=== PATIENT | female | born 1945 | race Hispanic/Latino ===

== ENCOUNTER 2019-02-25 13:25 | Inpatient (IN) | payer OTHER ==
[~2019-02-25] VITALS: Ht 160 cm; Wt 90.6 kg
[2019-02-25] VITALS (20 sets, daily range): BP systolic 89–154; BP diastolic 44–100
[2019-02-25 13:41] LABS: BASOPHILS % (AUTO) 0.2 % (0.0-5.0); EOSINOPHILS % (AUTO) 0.1 % (0.0-8.0); HEMATOCRIT 37.1 % (36-48); LYMPHOCYTES % (AUTO) 28.2 % (21.0-51.0); MEAN CORPUSCULAR HEMOGLOBIN 30.4 pg (27.0-33.0); MEAN CORPUSCULAR HGB CONC 31.6 g/dL (32.0-36.0); MONOCYTES % (AUTO) 4.6 % (3.0-13.0); NEUTROPHILS % (AUTO) 66.9 % (40.0-77.0); NUCLEATED RED BLOOD CELLS 0.1 % (0.0-0.19); PLATELET COUNT (AUTO) 251 K/uL (130-400); RED BLOOD CELL COUNT(AUTO) 3.86 MIL/uL (4.00-5.50); RED CELL DISTRIBUTION WIDTH 13.9 % (11.0-15.5); WHITE BLOOD COUNT (AUTO) 12.7 K/uL (4.8-10.8)
[2019-02-25] MEDS ORDERED: NOREPINEPHRINE BITARTRATE 1 MG/1 ML ML IV ONE (13:43)
[2019-02-25] MEDS ORDERED: SODIUM CHLORIDE 0.9% 1000ML 2,000 ML IV ONE (13:43)
[2019-02-25] MEDS ORDERED: SODIUM CHLORIDE 0.9% 250 ML IV ONE (13:44)
[2019-02-25 14:01] LABS: INR 1.1 (0.85-1.15); PROTHROMBIN TIME 11.5 SEC (9.6-11.6)
[2019-02-25 14:04] LABS: ALBUMIN 2.8 g/dL (3.5-5.0); BILIRUBIN,TOTAL 0.9 mg/dL (0.2-1.0); CREATININE 6.2 mg/dL (0.5-1.5); POTASSIUM 4.4 mmol/L (3.5-5.1); TOTAL PROTEIN, SERUM 6.9 g/dL (6.0-8.3)
[2019-02-25] MEDS ORDERED: PROPOFOL 1000 MG/100 ML 100 ML IV ONE ×2 (14:04→21:35)
[2019-02-25 14:39] LABS: ABG BASE EXCESS -15.8 mmol/L (-2.0-3.0); ABG HCO3 14.2 mmol/L (21.0-28.0); ABG OXYGEN SATURATION 99.7 % (95.0-99.0); ABG PCO2 50 mmHg (32-45)
[2019-02-25] MEDS: CLOPIDOGREL BISULFATE 75 MG TAB PO SCH (14:54)
[2019-02-25] MEDS: ASPIRIN 325 MG TABLET PO SCH (14:54)
[2019-02-25] MEDS: ENOXAPARIN SODIUM 40 MG/0.4 ML SYRINGE SQ SCH (15:00)
[2019-02-25] MEDS ORDERED: SUCCINYLCHOLINE CHLORIDE 20 MG/ML 10 ML VIAL IVP ONE (15:02)
[2019-02-25] MEDS ORDERED: ETOMIDATE 2 MG/ML 10 ML VIAL IVP ONE (15:02)
[2019-02-25] MEDS ORDERED: LACTATED RINGERS 1000ML 1,000 ML IV ONE ×2 (16:14→16:36)
[2019-02-25] MEDS ORDERED: SODIUM BICARB 50MEQ 50ML VIAL ONE (16:35)
[2019-02-25] MEDS ORDERED: LACTATED RINGERS 1000ML IV SCH (16:45)
[2019-02-25] MEDS ORDERED: SODIUM BICARB 50MEQ 50ML VIAL IV ONE (16:45)
[2019-02-25] MEDS ORDERED: SODIUM BICARB 8.4% 50ML SYRING 150 MEQ in DEXTROSE 5%-WATER 1,000 ML IV SCH (16:45)
[2019-02-25] MEDS ORDERED: PHENYLEPHRINE HCL 10 MG in SODIUM CHLORIDE 0.9% 250 ML IV PRN (16:45)
[2019-02-25] MEDS: NOREPINEPHRINE 4MG/NS 250ML 250 ML IV SCH (16:49)
[2019-02-25] MEDS ORDERED: GLUCAGON 1MG KIT 1 MG ML IM PRN (17:30)
[2019-02-25] MEDS ORDERED: DEXTROSE 50%-WATER 50 ML DISP.SYRIN IV PRN (17:30)
[2019-02-25] MEDS ORDERED: VANCOMYCIN PROTOCOL PER PHARMACY IV SCH (17:30)
[2019-02-25 18:02] LABS: ABG HCO3 20.3 mmol/L (21.0-28.0); ABG OXYGEN SATURATION 97.6 % (95.0-99.0); ABG PCO2 47 mmHg (32-45)
[2019-02-25] MEDS ORDERED: METO-408 PO (18:18)
[2019-02-25] MEDS ORDERED: GABA-531 PO (18:18)
[2019-02-25] MEDS ORDERED: ASPI-1181 PO (18:18)
[2019-02-25] MEDS ORDERED: FENO135C4 PO (18:18)
[2019-02-25] MEDS ORDERED: OXCA600T18 PO (18:18)
[2019-02-25] MEDS ORDERED: FURO40TA5 PO (18:18)
[2019-02-25] MEDS ORDERED: PRAV40TA3 PO (18:18)
[2019-02-25] MEDS ORDERED: LOSA100T58 PO (18:18)
[2019-02-25] MEDS ORDERED: GLIP5TAB11 PO (18:18)
[2019-02-25] MEDS: SODIUM CHLORIDE 0.9% 1000ML 1,000 ML IV SCH ×7 (18:30→23:00)
[2019-02-25] MEDS ORDERED: SODIUM BICARB 50MEQ 50ML VIAL IV SCH (18:30)
[2019-02-25 19:10] LABS: MAGNESIUM 2.1 mg/dL (1.80-2.40); PHOSPHORUS 13.1 mg/dL (2.5-4.9)
[2019-02-25] MEDS ORDERED: COMPOUND IV REFRIGERATED 1 EACH IVSOLN MISC PRN (19:15)
[2019-02-25] MEDS: INSULIN HUMULIN R 100 UNIT/ML 3ML SQ SCH (19:24)
[2019-02-25 19:36] LABS: HEMOGLOBIN A1C 13.3 % (4.0-6.0)
[2019-02-25] MEDS ORDERED: VANCOMYCIN 1.5 GM in SODIUM CHLORIDE 0.9% 250 ML IV SCH (20:00)
[2019-02-25] MEDS: ATORVASTATIN CALCIUM 40 MG TABLET PO SCH (20:30)
[2019-02-25] MEDS: ZOSYN 3.375GM+NS 50ML 50 ML IV SCH (22:02)
[2019-02-26] VITALS (76 sets, daily range): BP systolic 57–156; BP diastolic 32–96
[2019-02-26] MEDS: INSULIN HUMULIN R 100 UNIT/ML 3ML SQ SCH ×3 (00:09→12:07)
[2019-02-26] MEDS: SODIUM CHLORIDE 0.9% 1000ML 1,000 ML IV SCH ×8 (00:20→06:10)
[2019-02-26] MEDS: NOREPINEPHRINE 4MG/NS 250ML 250 ML IV SCH ×3 (01:37→21:36)
[2019-02-26 04:03] LABS: HEMATOCRIT 30.9 % (36-48); MEAN CORPUSCULAR HEMOGLOBIN 30.5 pg (27.0-33.0); MEAN CORPUSCULAR HGB CONC 33.8 g/dL (32.0-36.0); MEAN CORPUSCULAR VOLUME 90.1 fL (79-99); NUCLEATED RED BLOOD CELLS 0.1 % (0.0-0.19); PLATELET COUNT (AUTO) 184 K/uL (130-400); RED BLOOD CELL COUNT(AUTO) 3.43 MIL/uL (4.00-5.50); RED CELL DISTRIBUTION WIDTH 13.2 % (11.0-15.5)
[2019-02-26 04:16] LABS: ALBUMIN 2.5 g/dL (3.5-5.0); CREATININE 4.7 mg/dL (0.5-1.5); MAGNESIUM 1.8 mg/dL (1.80-2.40); PHOSPHORUS 8.3 mg/dL (2.5-4.9); POTASSIUM 4.4 mmol/L (3.5-5.1)
[2019-02-26] MEDS ORDERED: PROPOFOL 1000 MG/100 ML 100 ML IV ONE ×2 (04:25→11:52)
[2019-02-26] MEDS ORDERED: MAGNESIUM 2GM PREMIX 50ML 50 ML IV ONE (06:45)
[2019-02-26 06:54] LABS: APPEARANCE,URINE Turbid (CLEAR); BILIRUBIN,URINE Negative (NEGATIVE); COLOR,URINE Yellow (YELLOW); GLUCOSE, URINE (UA) 500 mg/dL (NEGATIVE); KETONES,URINE Negative (NEGATIVE); LEUKOCYTE ESTERASE ,URINE Moderate (NEGATIVE); NITRATE,URINE Negative (NEGATIVE); OCCULT BLOOD,URINE Large (NEGATIVE); PROTEIN,URINE POS 1+ mg/dL (NEGATIVE); UROBILINOGEN,URINE 0.2 mg/dL (0.2-1.0)
[2019-02-26 07:18] LABS: AMORPHOUS SEDIMENT,UR Few /LPF (None Seen); BACTERIA,URINE Few /HPF (None Seen); MUCUS,URINE Few LPF (None Seen); SQUAMOUS EPITHELIAL CELL,UR Rare /HPF (0-2); WBC,URINE >100 /HPF (0-1)
--- NOTE | 2019-02-26 07:49 | NUR ---
TRIGGER RECEIVED. Pt CURRENTLY INTUBATED. SPEECH AND SWALLOW EVALUATION IS RECOMMENDED 24 HOURS POST EXTUBATION. ADULT CARE PROVIDER WILL CONTINUE TO FOLLOW Pt. Addendum: 02/26/19 at 0753 by ANAHY GO, [facility] Amended: Links added.
--- NOTE | 2019-02-26 08:50 | NUR ---
DR. MADRID AT BEDSIDE FOR CONSULT.
[2019-02-26] MEDS: ZOSYN 3.375GM+NS 50ML 50 ML IV SCH ×2 (09:05→21:09)
[2019-02-26 09:16] LABS: PROTEIN,URINE RANDOM 94.5 mg/dL (0-11.9)
--- NOTE | 2019-02-26 10:19 | NUR ---
SEDATION VACATION COMPLETED. PT NODS YES TO QUESTIONS UNABLE TO OPEN EYES, MOVING LOWER EXTREMITIES SPONTANEOUSLY AND TO COMMANDS. PROPOFOL RESTARTED FOR PICC LINE PLACEMENT.
--- NOTE | 2019-02-26 10:32 | NUR ---
Daphne RIVERA CITY ENGINEER AT BEDSIDE. PLAN OF CARE DISCUSSED.
--- NOTE | 2019-02-26 11:37 | NUR ---
PICC LINE UNABLE TO INSERT PICC LINE 5 MALDIVIAN 2LUMEN TO RIGHT UPPER ARM. ATTEMPTED WITH DIFFICULTY, WAS UNABLE TO ADVANCE CATHETER ONLY TILL 25 CM AFTER SEVERAL ATTEMPTS. SMALL DRESSING APPLIED TO SITE. SMALL BRUISE NOTED TO SITE AFTER COMPLETION. REPORT GIVEN TO REBEL GOLDSTEIN RN. . NOTIFIED SURGICAL CODER WELL.
[2019-02-26] MEDS: CLOPIDOGREL BISULFATE 75 MG TAB PO SCH (11:54)
[2019-02-26] MEDS: ASPIRIN 325 MG TABLET PO SCH (11:54)
[2019-02-26] MEDS: SODIUM BICARB 8.4% 50ML SYRING 200 MEQ in DEXTROSE 5%-WATER 950 ML IV SCH ×2 (11:55→19:23)
--- NOTE | 2019-02-26 12:55 | NUR ---
DC PLAN PATIENT CURRENTLY UNDER PROCEDURE FOR PICC LINE. NO FAMILY AT BEDSIDE, WILL MONITOR. Addendum: 02/26/19 at 1256 by NAHOMI BECERRA RN CM Amended: Links added.
--- NOTE | 2019-02-26 14:14 | NUR ---
[place] PLAN PATIENT ASLEEP, DAUGHTER AT BEDSIDE. PER DAUGHTER, PATIENT IS INDEPENDENT, LIVES WITH SPOUSE AND NIECES, NO PROVIDER, NO EQUIPMENT, AND FEELS SAFE TO RETURN HOME ONCE READY. Addendum: 02/26/19 at 1417 by NAHOMI BECERRA RN CM Amended: Links added. Addendum: 02/26/19 at 1418 by NAHOMI BECERRA RN CM PLACED IN ERROR. Addendum: 02/26/19 at 1419 by NAHOMI MARIAM, RN CM ENTERED IN ERROR
--- NOTE | 2019-02-26 14:20 | NUR ---
DC PLAN PATIENT VENTED, NO FAMILY AT BEDSIDE. WILL MONITOR. Addendum: 02/26/19 at 1421 by NAHOMI BECERRA RN CM Amended: Links added.
--- NOTE | 2019-02-26 15:18 | NUR ---
RD NOTIFICATION Dx: Cardiac Arrest, Stemi. Hx: HTN, Hemorr- CVA in the past, COPD, CHF, DM, CKD. No diet order at this time; pt intubated. Recommend to consult PENOLOGY TEACHER 24 hours post extubation. Consult RD post extubation. RD pending to provide diet and nutrition education. Advance diet as tolerated when medically feasible. RD recommends draw lipid panel due to high risk CVA. RD pending diet and nutrition education- POST EXTUBATION. RD will continue to monitor and follow up. Rosalie Brown MS, JUANITA Addendum: 02/26/19 at [address] Amended: Links added.
[2019-02-26] MEDS: ENOXAPARIN SODIUM 40 MG/0.4 ML SYRINGE SQ SCH (17:12)
[2019-02-26] MEDS: INSULIN LISPRO 100 UNIT/ML 3ML SQ SCH (17:50)
[2019-02-26] MEDS: PROPOFOL 1000 MG/100 ML IV PRN (19:28)
--- NOTE | 2019-02-26 20:00 | NUR ---
ASSESSMENT REMAINS ON VENT WITH ORDERED SETTINGS AND SEDATION. LEVOPHED DRIP INFUSING FOR BP SUPPORT. ASSESSMENT COMPLETED SEE FLOW SHEET. FAMILY AT BEDSIDE AND QUESTIONS ANSWERED. Addendum: 02/26/19 at 2156 by ALANA CASE RN RN Amended: Links added.
[2019-02-26] MEDS: ATORVASTATIN CALCIUM 40 MG TABLET PO SCH (21:09)
[2019-02-26] MEDS ORDERED: SODIUM CHLORIDE 0.9% 250 ML IV ONE (21:14)
[2019-02-26] MEDS: INSULIN GLARGINE 100 UNITS/ML 10 ML VIAL SQ SCH (21:23)
[2019-02-27] VITALS (43 sets, daily range): BP systolic 85–144; BP diastolic 42–74
[2019-02-27] MEDS: INSULIN LISPRO 100 UNIT/ML 3ML SQ SCH ×4 (00:20→17:53)
[2019-02-27 04:12] LABS: HEMATOCRIT 30.6 % (36-48); MEAN CORPUSCULAR HGB CONC 34.5 g/dL (32.0-36.0); MEAN CORPUSCULAR VOLUME 89.9 fL (79-99); NUCLEATED RED BLOOD CELLS 0.2 % (0.0-0.19); PLATELET COUNT (AUTO) 176 K/uL (130-400); RED BLOOD CELL COUNT(AUTO) 3.41 MIL/uL (4.00-5.50); RED CELL DISTRIBUTION WIDTH 13.1 % (11.0-15.5); WHITE BLOOD COUNT (AUTO) 9.2 K/uL (4.8-10.8)
[2019-02-27 04:15] LABS: BAND NEUTROPHILS % (MANUAL) 18 % (0-2); LYMPHOCYTES % (MANUAL) 17 % (22-44); MAN.DIFF COMMENT-IMPRESSION MANUAL DIFFERENTIAL; PLATELET MORPHOLOGY COMMENT ADEQUATE; SEGMENTED NEUTROPHILS % 65 % (40-70)
[2019-02-27] MEDS: PROPOFOL 1000 MG/100 ML IV PRN ×3 (04:21→19:32)
[2019-02-27 04:28] LABS: ALBUMIN 2.2 g/dL (3.5-5.0); BILIRUBIN,DIRECT 0.8 mg/dL (0.0-0.3); BILIRUBIN,TOTAL 1.2 mg/dL (0.2-1.0); CREATININE 3.9 mg/dL (0.5-1.5); PHOSPHORUS 4.1 mg/dL (2.5-4.9); POTASSIUM 3.1 mmol/L (3.5-5.1); TOTAL PROTEIN, SERUM 5.7 g/dL (6.0-8.3)
[2019-02-27 04:48] LABS: ABG BASE EXCESS 15.8 mmol/L (-2.0-3.0); ABG HCO3 40.6 mmol/L (21.0-28.0); ABG OXYGEN SATURATION 95.1 % (95.0-99.0); ABG PCO2 48 mmHg (32-45)
[2019-02-27] MEDS: INSULIN GLARGINE 100 UNITS/ML 10 ML VIAL SQ SCH ×2 (06:35→21:14)
[2019-02-27] MEDS: SODIUM BICARB 8.4% 50ML SYRING 200 MEQ in DEXTROSE 5%-WATER 950 ML IV SCH (08:05)
[2019-02-27] MEDS: CLOPIDOGREL BISULFATE 75 MG TAB PO SCH (08:44)
[2019-02-27] MEDS: ZOSYN 3.375GM+NS 50ML 50 ML IV SCH ×2 (08:44→21:03)
[2019-02-27] MEDS: ASPIRIN 325 MG TABLET PO SCH (08:44)
--- NOTE | 2019-02-27 10:00 | NUR ---
Dr. Lewis in to see pt. plan of care discussed. New orders received and noted.
--- NOTE | 2019-02-27 11:57 | NUR ---
[employer] follow up representative called for pacemaker interrogation. Will interrogate device today.
[2019-02-27] MEDS: FAMOTIDINE/PF 20 MG/2 ML VIAL IV SCH (14:10)
[2019-02-27] MEDS: ENOXAPARIN SODIUM 40 MG/0.4 ML SYRINGE SQ SCH (14:11)
[2019-02-27] MEDS ORDERED: POTASSIUM CHLORIDE 10% ELIXIR 20 MEQ/15 ML UDCUP PO SCH (19:00)
[2019-02-27] MEDS: ATORVASTATIN CALCIUM 40 MG TABLET PO SCH (21:03)
[2019-02-28] VITALS (35 sets, daily range): BP systolic 94–169; BP diastolic 44–98
[2019-02-28] MEDS: PROPOFOL 1000 MG/100 ML IV PRN ×4 (03:49→23:00)
[2019-02-28 04:15] LABS: HEMATOCRIT 31.8 % (36-48); MEAN CORPUSCULAR HEMOGLOBIN 30.4 pg (27.0-33.0); MEAN CORPUSCULAR HGB CONC 33.5 g/dL (32.0-36.0); MEAN CORPUSCULAR VOLUME 90.7 fL (79-99); PLATELET COUNT (AUTO) 214 K/uL (130-400); RED CELL DISTRIBUTION WIDTH 13.1 % (11.0-15.5); WHITE BLOOD COUNT (AUTO) 9.6 K/uL (4.8-10.8)
[2019-02-28 04:32] LABS: ABG BASE EXCESS 5.3 mmol/L (-2.0-3.0); ABG HCO3 27.3 mmol/L (21.0-28.0); ABG OXYGEN SATURATION 98.4 % (95.0-99.0); ABG PCO2 32 mmHg (32-45)
[2019-02-28 04:43] LABS: ALBUMIN 2.1 g/dL (3.5-5.0); BILIRUBIN,TOTAL 1.5 mg/dL (0.2-1.0); CREATININE 3.3 mg/dL (0.5-1.5); MAGNESIUM 2.8 mg/dL (1.80-2.40); PHOSPHORUS 3.8 mg/dL (2.5-4.9); POTASSIUM 3.6 mmol/L (3.5-5.1); TOTAL PROTEIN, SERUM 6.2 g/dL (6.0-8.3); TROPONIN I 0.59 ng/mL (0.00-0.06); URIC ACID 9.9 mg/dL (2.6-7.2)
[2019-02-28] MEDS: INSULIN GLARGINE 100 UNITS/ML 10 ML VIAL SQ SCH ×2 (06:29→20:07)
[2019-02-28] MEDS: INSULIN LISPRO 100 UNIT/ML 3ML SQ SCH ×5 (06:30→20:08)
--- NOTE | 2019-02-28 07:00 | NUR ---
SEDATION WEANED OFF. PT AWAKE AND FOLLOWING COMMANDS, NOTED RESTLESS AT TIMES.
--- NOTE | 2019-02-28 07:35 | NUR ---
PT PLACED ON CPAP 10/5 ORDERED. TOLERATING WELL.
[2019-02-28] MEDS: ZOSYN 3.375GM+NS 50ML 50 ML IV SCH ×2 (07:56→20:58)
[2019-02-28] MEDS: FAMOTIDINE/PF 20 MG/2 ML VIAL IV SCH (07:57)
[2019-02-28] MEDS: ASPIRIN 325 MG TABLET PO SCH (07:57)
[2019-02-28] MEDS: CLOPIDOGREL BISULFATE 75 MG TAB PO SCH (07:57)
[2019-02-28 09:15] LABS: ABG BASE EXCESS 6.6 mmol/L (-2.0-3.0); ABG HCO3 33.2 mmol/L (21.0-28.0); ABG OXYGEN SATURATION 97.1 % (95.0-99.0); ABG PCO2 55 mmHg (32-45)
--- NOTE | 2019-02-28 09:50 | NUR ---
PT TOLERATING WEANING FROM VENT, RESTLESS AT TIMES. ATTEMPTING TO SIT UP AND PULL ETT, REORIENTED TO SITUATION. ABG/VS/PT CONDITION REPORTED DR. DEVINE. NEW ORDERS TO EXTUBATE PT.
--- NOTE | 2019-02-28 10:15 | NUR ---
PT FAILED AIR LEAK TEST., DR. DEVINE NOTIFIED. ORDER TO KEEP PT INTUBATED, T LACED BACK ON AC AND SEDATION RESTARTED. TOLERATING WELL. CONTINUE TO MONITOR T.
--- NOTE | 2019-02-28 11:00 | NUR ---
DR. DEVINE IN TO SEE PT. PLAN OF CARE DISCUSSED. NEW ORDERS RECEIVED AND NOTED.
[2019-02-28] MEDS: DEXAMETHASONE SOD PHOSPHATE 4 MG/ML 1ML VIAL IVP SCH ×2 (12:00→16:54)
--- NOTE | 2019-02-28 15:17 | NUR ---
RD Follow Up Notification for tube feeding recommendations received. Pt to remain intubated, sedated. RD TF Recommendations: Vital AF 1.2, Goal: 50mls/hr (1200mL/1440kcal/90gm pro) Rec flushes: 125ml Q6hrs. Recommendations Placed in Pt chart, RN notified. Pt LBM 02/26/19. Pt monitored labs: Na 149, CO2 33, BUN 53, Cr 3.3, GFR 15, Glu 176, Uric Acid 9.9, Ca 7.2, Mg 2.80, T. Bili 1.5, AST 1606, ALT 222. TCK 578, Myoglobin 247, Trop I 0.5, Alb 2.1. RD to continue to monitor. Please notify RD as additional nutrition concerns arise. Thank you. Addendum: 02/28/19 at [address] Amended: Links added.
[2019-02-28] MEDS: ENOXAPARIN SODIUM 40 MG/0.4 ML SYRINGE SQ SCH (16:03)
--- NOTE | 2019-02-28 16:46 | NUR ---
cm note pt currently still on vent, met with patient's daughter Hoa fong, states pt resides athome with her, and extended family, pt is independent with ambulation with walker at times. and has a provider for adll assist. pt drives, discussed dc planning of possible need for snf/rehab, states agreeable to any Md recommendations, once pt is more stable.
[2019-02-28] MEDS: ATORVASTATIN CALCIUM 40 MG TABLET PO SCH (19:58)
[2019-03-01] VITALS (28 sets, daily range): BP systolic 113–185; BP diastolic 57–104
[2019-03-01] MEDS: DEXAMETHASONE SOD PHOSPHATE 4 MG/ML 1ML VIAL IVP SCH ×4 (00:38→17:18)
[2019-03-01] MEDS: INSULIN LISPRO 100 UNIT/ML 3ML SQ SCH ×6 (00:42→21:28)
[2019-03-01] MEDS: PROPOFOL 1000 MG/100 ML IV PRN ×5 (04:10→23:18)
[2019-03-01 05:51] LABS: HEMATOCRIT 32.4 % (36-48); MEAN CORPUSCULAR HEMOGLOBIN 30.6 pg (27.0-33.0); MEAN CORPUSCULAR VOLUME 92.7 fL (79-99); NUCLEATED RED BLOOD CELLS 0.1 % (0.0-0.19); PLATELET COUNT (AUTO) 238 K/uL (130-400); RED CELL DISTRIBUTION WIDTH 13.7 % (11.0-15.5)
[2019-03-01 06:20] LABS: BILIRUBIN,TOTAL 1.1 mg/dL (0.2-1.0); CREATININE 2.6 mg/dL (0.5-1.5); POTASSIUM 3.7 mmol/L (3.5-5.1)
[2019-03-01 06:21] LABS: ALBUMIN 2.1 g/dL (3.5-5.0); TOTAL PROTEIN, SERUM 6.8 g/dL (6.0-8.3)
[2019-03-01] MEDS: INSULIN GLARGINE 100 UNITS/ML 10 ML VIAL SQ SCH ×2 (06:41→21:27)
[2019-03-01] MEDS: ZOSYN 3.375GM+NS 50ML 50 ML IV SCH ×2 (08:25→21:26)
[2019-03-01] MEDS: FAMOTIDINE/PF 20 MG/2 ML VIAL IV SCH (08:25)
[2019-03-01 09:14] LABS: ABG HCO3 22.5 mmol/L (21.0-28.0); ABG OXYGEN SATURATION 94.1 % (95.0-99.0); ABG PCO2 38 mmHg (32-45)
[2019-03-01] MEDS ORDERED: COMPOUND IV MISC 1 EACH IVSOLN MISC PRN (09:30)
--- NOTE | 2019-03-01 09:30 | NUR ---
MD VISIT Dr. Bradford Francisco and Sid Kumar in to see pt, update given. New orders received and will carry out.
[2019-03-01] MEDS: ASPIRIN 325 MG TABLET PO SCH (09:50)
[2019-03-01] MEDS: LEVETIRACETAM 250 MG in SODIUM CHLORIDE 0.9% 100 ML IV SCH ×2 (09:50→21:37)
[2019-03-01] MEDS: CLOPIDOGREL BISULFATE 75 MG TAB PO SCH (09:50)
--- NOTE | 2019-03-01 11:40 | NUR ---
Dr. Valdivia notified of patients blood pressure and abg results. Patient restless. Minimal leak test with very little air leak. Patient to be resedated.
--- NOTE | 2019-03-01 11:46 | NUR ---
FOLLOW UP COMPLETED. Pt CONTINUES TO BE INTUBATED AT THIS TIME. SPEECH AND SWALLOW EVALUATION IS RECOMMENDED 24 HOURS POST EXTUBATION. BUS DRIVER/MONITOR COORDINATED CARE WITH NURSE FEDERICO. Addendum: 03/01/19 at 1148 by ANAHY GO, [facility] Amended: Links added.
[2019-03-01] MEDS: ENOXAPARIN SODIUM 40 MG/0.4 ML SYRINGE SQ SCH (14:47)
[2019-03-01] MEDS ORDERED: HYDRALAZINE HCL 20 MG/ML VIAL ONE (18:32)
[2019-03-01] MEDS: HYDRALAZINE HCL 20 MG/ML VIAL IV PRN ×2 (18:35→23:18)
--- NOTE | 2019-03-01 19:28 | NUR ---
ASSESSMENT: REPORT RECEIVED. PATIENT OPENS EYES TO MILD STIMULI , PUPILS 2 MM EQUAL, ETT 7.5 @ 22 CM @ LIPS, VENT SETTINGS AC RATE 20/TV 450/ PEEP 5/FIO2 405, O2 saturation 40%, OGT WITH TUBE FEEDING VITAL AF @ 30 ML/HR, SEDATED WITH DIPRIVAN IV, LUNGS CLEAR , ABDOMEN SOFT WITH BOWEL SOUNDS ACTIVE. PEDAL PULSES WEAK,PALPABLE, BRUISING NOTED TO ANTERIOR NECK, JONES PATENT TO BSD, NO FAMILY PRESENT.
[2019-03-01] MEDS: ATORVASTATIN CALCIUM 40 MG TABLET PO SCH (21:26)
[2019-03-02] VITALS (24 sets, daily range): BP systolic 128–162; BP diastolic 63–103
[2019-03-02] MEDS: DEXAMETHASONE SOD PHOSPHATE 4 MG/ML 1ML VIAL IVP SCH ×5 (00:26→23:25)
[2019-03-02] MEDS: INSULIN LISPRO 100 UNIT/ML 3ML SQ SCH ×6 (00:28→20:50)
[2019-03-02] MEDS: PROPOFOL 1000 MG/100 ML IV PRN ×6 (03:30→21:12)
[2019-03-02 03:56] LABS: BASOPHILS % (AUTO) 0.2 % (0.0-5.0); HEMATOCRIT 32.3 % (36-48); LYMPHOCYTES % (AUTO) 7.5 % (21.0-51.0); MEAN CORPUSCULAR HEMOGLOBIN 29.8 pg (27.0-33.0); MEAN CORPUSCULAR HGB CONC 32.9 g/dL (32.0-36.0); MEAN CORPUSCULAR VOLUME 90.8 fL (79-99); MONOCYTES % (AUTO) 6.8 % (3.0-13.0); NEUTROPHILS % (AUTO) 85.5 % (40.0-77.0); NUCLEATED RED BLOOD CELLS 0.1 % (0.0-0.19); PLATELET COUNT (AUTO) 293 K/uL (130-400); RED BLOOD CELL COUNT(AUTO) 3.55 MIL/uL (4.00-5.50); RED CELL DISTRIBUTION WIDTH 13.6 % (11.0-15.5); WHITE BLOOD COUNT (AUTO) 7.6 K/uL (4.8-10.8)
[2019-03-02 04:05] LABS: CREATININE 2.3 mg/dL (0.5-1.5); MAGNESIUM 2.4 mg/dL (1.80-2.40); PHOSPHORUS 3.7 mg/dL (2.5-4.9); POTASSIUM 3.5 mmol/L (3.5-5.1)
[2019-03-02] MEDS: INSULIN GLARGINE 100 UNITS/ML 10 ML VIAL SQ SCH ×2 (06:34→20:51)
--- NOTE | 2019-03-02 07:32 | NUR ---
DR. GARCIA HAVE SPOKEN TO HIM REGARDING THE CONSULT
--- NOTE | 2019-03-02 07:50 | NUR ---
MD VISIT Dr. Keenan in to see pt, update given. Plan of care discussed.
[2019-03-02] MEDS: FAMOTIDINE/PF 20 MG/2 ML VIAL IV SCH (08:24)
[2019-03-02] MEDS: CLOPIDOGREL BISULFATE 75 MG TAB PO SCH (08:25)
[2019-03-02] MEDS: ASPIRIN 325 MG TABLET PO SCH (08:25)
--- NOTE | 2019-03-02 08:25 | NUR ---
NEPHRO Dr. Bradford Francisco in to see pt, update given, plan of care discussed.
[2019-03-02] MEDS: ZOSYN 3.375GM+NS 50ML 50 ML IV SCH ×2 (08:28→20:48)
[2019-03-02 08:40] LABS: ABG BASE EXCESS 0.4 mmol/L (-2.0-3.0); ABG HCO3 22.7 mmol/L (21.0-28.0); ABG OXYGEN SATURATION 97.2 % (95.0-99.0); ABG PCO2 31 mmHg (32-45)
--- NOTE | 2019-03-02 09:00 | NUR ---
ENT Dr. Brown in to see pt, ENT scope done. New order received for CT of neck w/o contrast, will carry out.
--- NOTE | 2019-03-02 09:30 | NUR ---
NEURO Dr. Lau in to see pt, update given.
[2019-03-02] MEDS: LEVETIRACETAM 250 MG in SODIUM CHLORIDE 0.9% 100 ML IV SCH ×2 (10:13→22:12)
[2019-03-02] MEDS: ENOXAPARIN SODIUM 40 MG/0.4 ML SYRINGE SQ SCH (14:07)
[2019-03-02] MEDS: ARTIFICAL TEARS SOL 15 ML OU SCH (16:14)
[2019-03-02] MEDS: ATORVASTATIN CALCIUM 40 MG TABLET PO SCH (20:48)
[2019-03-03] VITALS (26 sets, daily range): BP systolic 112–170; BP diastolic 59–88
[2019-03-03] MEDS: PROPOFOL 1000 MG/100 ML IV PRN ×7 (00:43→22:20)
[2019-03-03] MEDS: INSULIN LISPRO 100 UNIT/ML 3ML SQ SCH ×6 (00:44→20:06)
[2019-03-03 04:38] LABS: HEMATOCRIT 31.4 % (36-48); MEAN CORPUSCULAR HEMOGLOBIN 30.6 pg (27.0-33.0); MEAN CORPUSCULAR HGB CONC 33.4 g/dL (32.0-36.0); MEAN CORPUSCULAR VOLUME 91.5 fL (79-99); NUCLEATED RED BLOOD CELLS 0.1 % (0.0-0.19); PLATELET COUNT (AUTO) 309 K/uL (130-400); RED BLOOD CELL COUNT(AUTO) 3.43 MIL/uL (4.00-5.50); RED CELL DISTRIBUTION WIDTH 13.4 % (11.0-15.5)
[2019-03-03 05:00] LABS: ALBUMIN 2.2 g/dL (3.5-5.0); BILIRUBIN,TOTAL 0.5 mg/dL (0.2-1.0); MAGNESIUM 2.5 mg/dL (1.80-2.40); PHOSPHORUS 4.9 mg/dL (2.5-4.9); POTASSIUM 4.1 mmol/L (3.5-5.1); TOTAL PROTEIN, SERUM 6.3 g/dL (6.0-8.3)
[2019-03-03] MEDS: DEXAMETHASONE SOD PHOSPHATE 4 MG/ML 1ML VIAL IVP SCH ×4 (05:09→23:53)
[2019-03-03] MEDS: INSULIN GLARGINE 100 UNITS/ML 10 ML VIAL SQ SCH ×2 (06:30→20:05)
[2019-03-03] MEDS: ASPIRIN 325 MG TABLET PO SCH (08:27)
[2019-03-03] MEDS: FAMOTIDINE/PF 20 MG/2 ML VIAL IV SCH (08:27)
[2019-03-03] MEDS: CLOPIDOGREL BISULFATE 75 MG TAB PO SCH (08:28)
[2019-03-03] MEDS: ZOSYN 3.375GM+NS 50ML 50 ML IV SCH ×2 (08:28→21:31)
[2019-03-03] MEDS: LEVETIRACETAM 250 MG in SODIUM CHLORIDE 0.9% 100 ML IV SCH ×2 (09:35→22:07)
[2019-03-03] MEDS: HYDRALAZINE HCL 20 MG/ML VIAL IV PRN (10:26)
[2019-03-03] MEDS: ENOXAPARIN SODIUM 40 MG/0.4 ML SYRINGE SQ SCH (14:07)
--- NOTE | 2019-03-03 14:48 | NUR ---
RD FOLLOW UP NOTE Recommend to decrease tube feeding rate to 45mls d/t to increased CHO load, BG 263, Pt also with Propofol (9mls/hr:238kcals) in place. Pt with improving Renal labs values (BUN 57, Cr 2.0, GFR 26). Pt remains intubated, being weaned as per EMR. Pt LBM 11, Liquid/Brown Loose, as per EMR. Pt remaining monitored labs: Na 149, Ca 8.0, Mg 2.50, AST 167, ALT 806, Alb 2.2. RD to continue to monitor. Please notify RD as additional nutrition concerns arise. Thank you. Addendum: 03/03/19 at [address] Amended: Links added.
[2019-03-03] MEDS: ARTIFICAL TEARS SOL 15 ML OU SCH (16:17)
--- NOTE | 2019-03-03 20:00 | NUR ---
ASSESSMENT REMAINS ON VENT WITH ORDERED SETTINGS AND SEDATION. ASSESSMENT COMPLETED SEE FLOW SHEET. Addendum: 03/03/19 at 6 by ALANA CASE RN RN Amended: Links added.
[2019-03-03] MEDS: ATORVASTATIN CALCIUM 40 MG TABLET PO SCH (20:01)
[2019-03-04] VITALS (25 sets, daily range): BP systolic 106–176; BP diastolic 49–100
[2019-03-04] MEDS: INSULIN LISPRO 100 UNIT/ML 3ML SQ SCH ×6 (00:05→20:00)
[2019-03-04] MEDS: PROPOFOL 1000 MG/100 ML IV PRN ×4 (01:26→08:39)
[2019-03-04 04:12] LABS: CREATININE 1.7 mg/dL (0.5-1.5); MAGNESIUM 2.2 mg/dL (1.80-2.40); POTASSIUM 4.8 mmol/L (3.5-5.1)
[2019-03-04] MEDS: DEXAMETHASONE SOD PHOSPHATE 4 MG/ML 1ML VIAL IVP SCH ×4 (06:16→23:13)
[2019-03-04] MEDS: INSULIN GLARGINE 100 UNITS/ML 10 ML VIAL SQ SCH ×2 (06:18→21:29)
[2019-03-04] MEDS: FAMOTIDINE/PF 20 MG/2 ML VIAL IV SCH (08:05)
[2019-03-04] MEDS: CLOPIDOGREL BISULFATE 75 MG TAB PO SCH (08:06)
[2019-03-04] MEDS: ASPIRIN 325 MG TABLET PO SCH (08:06)
[2019-03-04] MEDS: ZOSYN 3.375GM+NS 50ML 50 ML IV SCH ×2 (08:38→20:41)
[2019-03-04] MEDS: LEVETIRACETAM 250 MG in SODIUM CHLORIDE 0.9% 100 ML IV SCH ×2 (09:20→22:13)
[2019-03-04] MEDS: HYDRALAZINE HCL 20 MG/ML VIAL IV PRN ×2 (10:47→23:43)
[2019-03-04 11:32] LABS: ABG BASE EXCESS -2.3 mmol/L (-2.0-3.0); ABG HCO3 21.8 mmol/L (21.0-28.0); ABG OXYGEN SATURATION 98.3 % (95.0-99.0); ABG PCO2 36 mmHg (32-45)
[2019-03-04] MEDS ORDERED: RACEPINEPHRINE HCL 2.25% 0.5 ML NEB SOLN NEB PRN (13:30)
--- NOTE | 2019-03-04 13:42 | NUR ---
RD NOTIFICATION/ FOLLOW UP DIET: NPO FOR NOW DUE TO WEANING TRIALS. PT PREVIOUSLY TOLERATING VITAL AF 1.2 AT 45ML/HR WELL PER RN. PT CURRENTLY ON WEANING TRIALS FOR POST EXTUBATION. LBM: 03/04 NOTED. SKIN INTACT, NO EDEMA NOTED. RECOMMENDATIONS: CONSULT JACK SPINNER POST EXTUBATION ADVANCE DIET TOLERATED WHEN MEDICALLY FEASIBLE PLEASE NOTIFY RD WITH ANY CHANGES THAT OCCUR RD WILL CONTINUE TO FOLLOW UP AND MONITOR Addendum: 03/04/19 at [address] Amended: Links added.
--- NOTE | 2019-03-04 14:10 | NUR ---
EXTUBATED PATIENT EXTUBATED AND PLACED ON CAM AT 40%; VS WNL
--- NOTE | 2019-03-04 14:15 | NUR ---
PATIENT STATUS PATIENT CONTINUES TO BE CONFUSED; INCOHERANT; SPITTING, REMOVING OXYGEN MASK, AND FOUND TO HAVE LIVE LICE CRAWLING ON FOREHEAD; DR GLEASON MADE AWARE
[2019-03-04] MEDS ORDERED: PHARMACY COMMUNICATION MISC SCH (14:30)
[2019-03-04] MEDS ORDERED: PERMETHRIN LOTION 1% 59ML BOTTLE TP SCH (14:37)
[2019-03-04] MEDS: ENOXAPARIN SODIUM 40 MG/0.4 ML SYRINGE SQ SCH (14:51)
[2019-03-04] MEDS: ARTIFICAL TEARS SOL 15 ML OU SCH (16:54)
[2019-03-04] MEDS ORDERED: ALTEPLASE 2 MG/VIAL IV SCH ×2 (19:45→22:00)
--- NOTE | 2019-03-04 19:45 | NUR ---
STATUS REMAINS CONFUSED AND AGITATED. HAS 1:[address] WILL NOT LEAVE HEART MONITOR ON AND CONSTANTLY THROWS LEGS OFF SIDE OF BED. REORIENTED BY STAFF BUT REMAINS AGITATED AND CONFUSED. CALL PLACED TO ADAM VITALE .
--- NOTE | 2019-03-04 19:50 | NUR ---
FREIGHT FLAGMAN CALL IAM,FREIGHT FLAGMAN CALLS AND INFORMED OF CONTINUED AGITATION AND CONFUSION. VSS. ORDERS RECEIVED.
[2019-03-04] MEDS: ATORVASTATIN CALCIUM 40 MG TABLET PO SCH (20:41)
[2019-03-04] MEDS ORDERED: HALOPERIDOL LACTATE 5 MG/ML VIAL IM SCH (21:00)
[2019-03-04] MEDS ORDERED: COMPOUND IV REFRIGERATED 1 EACH IVSOLN MISC PRN (21:45)
[2019-03-04] MEDS ORDERED: VANCOMYCIN 1.75 GM in SODIUM CHLORIDE 0.9% 250 ML IV ONE (22:00)
[2019-03-05] VITALS (16 sets, daily range): BP systolic 139–191; BP diastolic 66–102
[2019-03-05 03:58] LABS: BASOPHILS % (AUTO) 0.4 % (0.0-5.0); HEMATOCRIT 31.6 % (36-48); LYMPHOCYTES % (AUTO) 9.5 % (21.0-51.0); MEAN CORPUSCULAR HEMOGLOBIN 30.1 pg (27.0-33.0); MEAN CORPUSCULAR VOLUME 91.3 fL (79-99); MONOCYTES % (AUTO) 7.5 % (3.0-13.0); NEUTROPHILS % (AUTO) 82.6 % (40.0-77.0); NUCLEATED RED BLOOD CELLS 0.1 % (0.0-0.19); PLATELET COUNT (AUTO) 431 K/uL (130-400); RED BLOOD CELL COUNT(AUTO) 3.46 MIL/uL (4.00-5.50); RED CELL DISTRIBUTION WIDTH 13.3 % (11.0-15.5); WHITE BLOOD COUNT (AUTO) 11.8 K/uL (4.8-10.8)
[2019-03-05] MEDS: INSULIN LISPRO 100 UNIT/ML 3ML SQ SCH ×6 (04:00→21:43)
[2019-03-05 04:14] LABS: ALBUMIN 2.5 g/dL (3.5-5.0); BILIRUBIN,TOTAL 0.8 mg/dL (0.2-1.0); CREATININE 1.4 mg/dL (0.5-1.5); MAGNESIUM 2.6 mg/dL (1.80-2.40); PHOSPHORUS 3.6 mg/dL (2.5-4.9); POTASSIUM 4.5 mmol/L (3.5-5.1); TOTAL PROTEIN, SERUM 6.6 g/dL (6.0-8.3)
[2019-03-05] MEDS: HYDRALAZINE HCL 20 MG/ML VIAL IV PRN (04:21)
[2019-03-05] MEDS: DEXAMETHASONE SOD PHOSPHATE 4 MG/ML 1ML VIAL IVP SCH ×4 (05:50→21:37)
[2019-03-05] MEDS: INSULIN GLARGINE 100 UNITS/ML 10 ML VIAL SQ SCH ×2 (06:24→21:44)
[2019-03-05] MEDS: FAMOTIDINE/PF 20 MG/2 ML VIAL IV SCH (07:44)
[2019-03-05] MEDS: ZOSYN 3.375GM+NS 50ML 50 ML IV SCH ×2 (07:44→21:35)
[2019-03-05] MEDS: DEXTROSE 5%-WATER 1,000 ML IV SCH (08:59)
[2019-03-05] MEDS: LEVETIRACETAM 250 MG in SODIUM CHLORIDE 0.9% 100 ML IV SCH ×2 (09:01→21:35)
--- NOTE | 2019-03-05 10:00 | NUR ---
COGNITIVE-LINGUISTIC EVALUATION COMPLETED. Pt PRESENTS WITH MODERATE COGNITIVE DEFICITS. EVALUATION: PT AAOX2, IMPULSIVE AND REQUIRING MODERATE CUES TO FOLLOW 1-STEP COMMANDS. Pt ABLE TO VERBALIZE SIMPLE WANTS AND NEEDS. Pt WITH DECREASED ATTENTION TO TASK REQUIRING FREQUENT REDIRECTION. Pt WITH DECREASED MEMORY SKILLS AT THIS TIME. Pt WITH DECREASED ABILITY TO RECALL INFORMATION AFTER A SHORT DELAY. RECOMMENDATIONS: 1. SKILLED SPEECH THERAPY 3-5XWK TOLERATED BY Pt. LTG1: Pt WILL INCREASE COGNITIVE SKILLS TO PARTICIPATE IN ADLs INDEPENDENTLY. STG1: Pt WILL BE AAOX4 INDEPENDENTLY. STG2: PT WILL FOLLOW 2-STEP COMMANDS INDEPENDENTLY WITH 80% ACCURACY. STG3: Pt WILL RECALL INFORMATION AFTER A SHORT DELAY WITH 80% ACCURACY. STG4: Pt WILL ATTEND TO TASK WITH NO RE-DIRECTION IN 3/5 TRIALS. STG5: SKILLED EDUCATION Pt/FAMILY/STAFF. G-CODES ATTENTION: G9165: TESHA G9166: RONY G9167: CK Addendum: 03/05/19 at 1336 by ILIA BARAJAS Amended: Links added.
[2019-03-05] MEDS: CLOPIDOGREL BISULFATE 75 MG TAB PO SCH (10:06)
[2019-03-05] MEDS: ASPIRIN 325 MG TABLET PO SCH (10:06)
--- NOTE | 2019-03-05 10:15 | NUR ---
DYSPHAGIA EVAL COMPLETED. +S.S OF ASPIRATION WITH THIN AND MECHANICAL SOFT/CHOPPED. RECOMMEND PUREED, NECTAR-THICK LIQUIDS; PILLS CRUSHED WITH APPLESAUCE. RECOMMENDATIONS: DYSPHAGIA THERAPY 3-5X WEEK TO INCREASE ORAL MOTOR STRENGTH AND PHARYNGEAL SWALLOW: LTG#1: Pt WILL TOLERATE LEAST RESTRICTIVE DIET TO MEET NUTRITION/HYDRATION WITH NO S/S OF ASPIRATION. LTG#2: SKILLED EDUCATION Pt/FAMILY/STAFF STG#1: Pt WILL PARTICIPATE IN LARYNGEAL ELEVATION/EXCURSION EXERCISES WITH 80% ACCURACY. STG#2: Pt WILL PARTICIPATE IN TONGUE BASE RETRACTION EXERCISES WITH 80% ACCURACY. STG#3: Pt WILL PARTICIPATE IN ORAL MOTOR EXERCISES WITH 80% ACCURACY. STG#4: Pt WILL TOLERATE PUREED AND NECTAR-TEXTURE WITH NO S/S OF ASPIRATION, STG#5: PT WILL TOLERATE TRIALS OF ADVANCED TEXTURES OF MECHANICAL SOFT, THIN LIQUIDS WITH NO OVERT S/S OF ASPIRATION. STG#6: SKILLED EDUCATION Pt/FAMILY/STAFF. Addendum: 03/05/19 at 1346 by ANAHY GO, [facility] Amended: Links added.
[2019-03-05] MEDS: LOSARTAN 50 MG TABLET PO SCH (11:44)
[2019-03-05] MEDS: ENOXAPARIN SODIUM 40 MG/0.4 ML SYRINGE SQ SCH (14:25)
[2019-03-05] MEDS: ARTIFICAL TEARS SOL 15 ML OU SCH (15:38)
[2019-03-05] MEDS ORDERED: VANCOMYCIN 750MG + NS 250 ML IV SCH ×2 (18:00)
[2019-03-05] MEDS: METOPROLOL SUCCINATE 25 MG PO SCH (21:00)
[2019-03-05] MEDS: ATORVASTATIN CALCIUM 40 MG TABLET PO SCH (21:36)
[2019-03-06] MEDS: DEXTROSE 5%-WATER 1,000 ML IV SCH (00:32)
[2019-03-06] MEDS: INSULIN LISPRO 100 UNIT/ML 3ML SQ SCH ×6 (00:42→20:00)
[2019-03-06 03:55] LABS: BASOPHILS % (AUTO) 0.2 % (0.0-5.0); EOSINOPHILS % (AUTO) 0.2 % (0.0-8.0); LYMPHOCYTES % (AUTO) 17.5 % (21.0-51.0); MEAN CORPUSCULAR HEMOGLOBIN 29.4 pg (27.0-33.0); MEAN CORPUSCULAR HGB CONC 32.5 g/dL (32.0-36.0); MEAN CORPUSCULAR VOLUME 90.3 fL (79-99); MONOCYTES % (AUTO) 7.7 % (3.0-13.0); NEUTROPHILS % (AUTO) 74.4 % (40.0-77.0); PLATELET COUNT (AUTO) 475 K/uL (130-400); RED BLOOD CELL COUNT(AUTO) 2.77 MIL/uL (4.00-5.50); RED CELL DISTRIBUTION WIDTH 13.4 % (11.0-15.5)
[2019-03-06 04:00] VITALS: BP 159/74
[2019-03-06 04:06] LABS: ALBUMIN 2.5 g/dL (3.5-5.0); BILIRUBIN,TOTAL 0.6 mg/dL (0.2-1.0); CREATININE 1.3 mg/dL (0.5-1.5); MAGNESIUM 2.4 mg/dL (1.80-2.40); PHOSPHORUS 3.6 mg/dL (2.5-4.9); POTASSIUM 4.1 mmol/L (3.5-5.1)
[2019-03-06 04:16] LABS: B-TYPE NATRIURETIC PEPTIDE 181 pg/mL (0-100)
[2019-03-06] MEDS: DEXAMETHASONE SOD PHOSPHATE 4 MG/ML 1ML VIAL IVP SCH (06:06)
[2019-03-06] MEDS: INSULIN GLARGINE 100 UNITS/ML 10 ML VIAL SQ SCH ×2 (06:14→21:22)
[2019-03-06 07:13] VITALS: BP 153/88
[2019-03-06] MEDS: ASPIRIN 325 MG TABLET PO SCH (08:38)
[2019-03-06] MEDS: FAMOTIDINE/PF 20 MG/2 ML VIAL IV SCH (08:38)
[2019-03-06] MEDS: LOSARTAN 50 MG TABLET PO SCH (08:38)
[2019-03-06] MEDS: CLOPIDOGREL BISULFATE 75 MG TAB PO SCH (08:38)
[2019-03-06] MEDS: ZOSYN 3.375GM+NS 50ML 50 ML IV SCH ×2 (08:43→20:49)
[2019-03-06] MEDS: METOPROLOL SUCCINATE 25 MG PO SCH ×2 (09:00→20:58)
[2019-03-06] MEDS: LEVETIRACETAM 250 MG in SODIUM CHLORIDE 0.9% 100 ML IV SCH ×2 (10:50→20:58)
--- NOTE | 2019-03-06 11:35 | NUR ---
Attempted to provide diet education however, due to pt being dependent on family members, ROYAL Garcia and Beam Press Operator Silvia- advised to return for education when family is present. RD will continue to attempt to provide diet education.
[2019-03-06 11:38] VITALS: BP 148/90
[2019-03-06] MEDS ORDERED: PHARMACY COMMUNICATION MISC SCH (11:45)
[2019-03-06] MEDS: METHYLPREDNISOLONE 4 MG TABLET PO SCH ×3 (14:12→20:57)
[2019-03-06] MEDS: ENOXAPARIN SODIUM 40 MG/0.4 ML SYRINGE SQ SCH (14:13)
[2019-03-06 15:09] VITALS: BP 148/79
[2019-03-06] MEDS: ARTIFICAL TEARS SOL 15 ML OU SCH (17:22)
[2019-03-06 19:44] VITALS: BP 148/63
[2019-03-06] MEDS: ATORVASTATIN CALCIUM 40 MG TABLET PO SCH (20:49)
[2019-03-06 23:28] VITALS: BP 110/53
[2019-03-07] VITALS (12 sets, daily range): BP systolic 112–161; BP diastolic 65–87
[2019-03-07] MEDS: INSULIN LISPRO 100 UNIT/ML 3ML SQ SCH ×6 (04:00→20:00)
[2019-03-07 04:11] LABS: HEMATOCRIT 22.1 % (36-48); MEAN CORPUSCULAR HEMOGLOBIN 29.6 pg (27.0-33.0); MEAN CORPUSCULAR HGB CONC 32.5 g/dL (32.0-36.0); MEAN CORPUSCULAR VOLUME 90.8 fL (79-99); NUCLEATED RED BLOOD CELLS 0.2 % (0.0-0.19); PLATELET COUNT (AUTO) 483 K/uL (130-400); RED BLOOD CELL COUNT(AUTO) 2.43 MIL/uL (4.00-5.50); RED CELL DISTRIBUTION WIDTH 13.6 % (11.0-15.5); WHITE BLOOD COUNT (AUTO) 14.9 K/uL (4.8-10.8)
[2019-03-07 04:21] LABS: CREATININE 1.3 mg/dL (0.5-1.5); POTASSIUM 4.3 mmol/L (3.5-5.1)
[2019-03-07 04:24] LABS: LYMPHOCYTES % (MANUAL) 20 % (22-44); MAN.DIFF COMMENT-IMPRESSION MANUAL DIFFERENTIAL; MONOCYTES % (MANUAL) 8 % (2-9); PLATELET MORPHOLOGY COMMENT INCREASED; SEGMENTED NEUTROPHILS % 72 % (40-70)
[2019-03-07] MEDS: INSULIN GLARGINE 100 UNITS/ML 10 ML VIAL SQ SCH ×2 (06:44→21:06)
[2019-03-07] MEDS ORDERED: DiphenhydrAMINE HCL 50 MG/ML VIAL IV SCH (07:15)
[2019-03-07] MEDS ORDERED: ACETAMINOPHEN 325 MG TAB PO SCH (07:15)
[2019-03-07] MEDS ORDERED: FUROSEMIDE 10 MG/ML 2ML VIAL IV SCH (07:15)
[2019-03-07] MEDS: CARVEDILOL 3.125 MG TABLET PO SCH ×2 (08:20→21:21)
[2019-03-07] MEDS: METHYLPREDNISOLONE 4 MG TABLET PO SCH ×2 (08:25→22:32)
[2019-03-07] MEDS: ZOSYN 3.375GM+NS 50ML 50 ML IV SCH (08:25)
[2019-03-07] MEDS: FAMOTIDINE/PF 20 MG/2 ML VIAL IV SCH (08:26)
[2019-03-07] MEDS: ASPIRIN 325 MG TABLET PO SCH (08:26)
[2019-03-07] MEDS: CLOPIDOGREL BISULFATE 75 MG TAB PO SCH (08:26)
--- NOTE | 2019-03-07 08:35 | NUR ---
CONSULT Dr. Cabezas notified of new consult, new orders received and will carry out.
[2019-03-07] MEDS: LEVETIRACETAM 250 MG in SODIUM CHLORIDE 0.9% 100 ML IV SCH ×2 (08:58→22:32)
[2019-03-07] MEDS: LOSARTAN 50 MG TABLET PO SCH (08:59)
[2019-03-07] MEDS: METOPROLOL SUCCINATE 25 MG PO SCH ×2 (08:59→20:58)
[2019-03-07] MEDS ORDERED: PANTOPRAZOLE 40 MG/VIAL IVP SCH (09:00)
[2019-03-07] MEDS: PANTOPRAZOLE SODIUM 80 MG in SODIUM CHLORIDE 0.9% 100 ML IV SCH ×2 (10:46→20:56)
[2019-03-07] MEDS ORDERED: PERMETHRIN CREAM 5% 60GM TUBE TP SCH (11:30)
[2019-03-07] MEDS ORDERED: METHYLPREDNISOLONE 4 MG TABLET PO SCH (14:00)
[2019-03-07] MEDS: ENOXAPARIN SODIUM 40 MG/0.4 ML SYRINGE SQ SCH (14:47)
[2019-03-07] MEDS: ARTIFICAL TEARS SOL 15 ML OU SCH (15:14)
--- NOTE | 2019-03-07 16:25 | NUR ---
XFR Pt transferred to room 314, in no distress. All belongings taken with the pt. Telemetry pack applied before transfer. Daughter Jayleen notified of transfer. Report given to ROYAL Muhammad. BRYSON Solares at bedside.
--- NOTE | 2019-03-07 17:30 | NUR ---
DC PLANNING- CHART REVIEW CHART REIVEWEDED BRIEFLY, NOTED PT PREVIOUS ABLE TO FUNCTION AT HOME, CRITICAL EPISODE OF ILLNESS THIS ADMISSION WILL SPEAK TO FAMILY IN AM AND ADDRESS NEW DISCHARGE NEEDS
[2019-03-07] MEDS: VANCOMYCIN 1.25 GM in SODIUM CHLORIDE 0.9% 250 ML IV SCH (17:51)
--- NOTE | 2019-03-07 18:59 | NUR ---
BLOOD TRANSUFION ENDED AT 1849. NO SIGNS OF REACTION ,VITAL SIGNS STABLE
[2019-03-07] MEDS: ATORVASTATIN CALCIUM 40 MG TABLET PO SCH (21:21)
[2019-03-08] VITALS (19 sets, daily range): BP systolic 115–162; BP diastolic 60–92
[2019-03-08] MEDS: INSULIN LISPRO 100 UNIT/ML 3ML SQ SCH ×5 (04:00→20:00)
[2019-03-08] MEDS: INSULIN GLARGINE 100 UNITS/ML 10 ML VIAL SQ SCH ×2 (06:06→21:00)
[2019-03-08 06:38] LABS: HEMATOCRIT 30.1 % (36-48); MEAN CORPUSCULAR HEMOGLOBIN 30.8 pg (27.0-33.0); MEAN CORPUSCULAR HGB CONC 33.4 g/dL (32.0-36.0); MEAN CORPUSCULAR VOLUME 92.2 fL (79-99); NUCLEATED RED BLOOD CELLS 0.2 % (0.0-0.19); PLATELET COUNT (AUTO) 429 K/uL (130-400); RED BLOOD CELL COUNT(AUTO) 3.27 MIL/uL (4.00-5.50); RED CELL DISTRIBUTION WIDTH 14.3 % (11.0-15.5); WHITE BLOOD COUNT (AUTO) 14.5 K/uL (4.8-10.8)
[2019-03-08 06:46] LABS: CREATININE 1.2 mg/dL (0.5-1.5); POTASSIUM 3.7 mmol/L (3.5-5.1)
[2019-03-08] MEDS: METHYLPREDNISOLONE 4 MG TABLET PO SCH ×2 (08:00→18:06)
[2019-03-08] MEDS: METOPROLOL SUCCINATE 25 MG PO SCH ×2 (09:00→21:00)
[2019-03-08] MEDS: CLOPIDOGREL BISULFATE 75 MG TAB PO SCH (09:00)
[2019-03-08] MEDS: CARVEDILOL 3.125 MG TABLET PO SCH ×2 (09:00→21:14)
[2019-03-08] MEDS: LOSARTAN 50 MG TABLET PO SCH (09:00)
[2019-03-08] MEDS: ASPIRIN 325 MG TABLET PO SCH (09:00)
--- NOTE | 2019-03-08 10:03 | NUR ---
Pt update Spoke to BIBIANA Bond for Dr. Keenan, stated he will talk to MD for cardiac clearance and will call me back, Pending call back.
--- NOTE | 2019-03-08 10:54 | NUR ---
PT TAKEN OFF THE FLOOR FOR AN EGD AT THIS TIME WITH DR. HERNANDO BLEVINS
[2019-03-08] MEDS ORDERED: PROPOFOL 10 MG/ML 20ML VIAL IV ONE ×2 (12:15→12:16)
[2019-03-08] MEDS: LEVETIRACETAM 250 MG in SODIUM CHLORIDE 0.9% 100 ML IV SCH ×2 (13:32→21:15)
[2019-03-08] MEDS: ENOXAPARIN SODIUM 40 MG/0.4 ML SYRINGE SQ SCH (15:09)
[2019-03-08] MEDS: ARTIFICAL TEARS SOL 15 ML OU SCH (16:00)
[2019-03-08] MEDS: VANCOMYCIN 1.25 GM in SODIUM CHLORIDE 0.9% 250 ML IV SCH (17:40)
[2019-03-08] MEDS: ATORVASTATIN CALCIUM 40 MG TABLET PO SCH (21:14)
[2019-03-09] VITALS: BP 156/91
[2019-03-09 04:00] VITALS: BP 155/72
[2019-03-09] MEDS: INSULIN LISPRO 100 UNIT/ML 3ML SQ SCH ×5 (04:15→17:47)
[2019-03-09] MEDS: INSULIN GLARGINE 100 UNITS/ML 10 ML VIAL SQ SCH ×2 (06:19→21:00)
[2019-03-09] MEDS: VANCOMYCIN 750MG + NS 250 ML IV SCH ×4 (06:19→17:45)
[2019-03-09 08:00] VITALS: BP_SYST 112; BP_SYST 146; BP_DIAS 60; BP_DIAS 94
[2019-03-09] MEDS: METHYLPREDNISOLONE 4 MG TABLET PO SCH ×3 (08:00→17:46)
[2019-03-09] MEDS: METOPROLOL SUCCINATE 25 MG PO SCH ×2 (09:00→21:00)
[2019-03-09] MEDS: LEVETIRACETAM 250 MG in SODIUM CHLORIDE 0.9% 100 ML IV SCH ×2 (10:00→22:05)
[2019-03-09] MEDS: LOSARTAN 50 MG TABLET PO SCH (11:24)
[2019-03-09] MEDS: ASPIRIN 325 MG TABLET PO SCH (11:24)
[2019-03-09] MEDS: CLOPIDOGREL BISULFATE 75 MG TAB PO SCH (11:24)
[2019-03-09] MEDS: CARVEDILOL 3.125 MG TABLET PO SCH ×2 (11:25→22:05)
[2019-03-09 12:00] VITALS: BP_SYST 129; BP_SYST 152; BP_DIAS 65; BP_DIAS 95
--- NOTE | 2019-03-09 13:23 | NUR ---
RD NOTIFICATION/ FOLLOW UP DIET: CLEAR LIQUIDS. PO INTAKE 0% AND HAS POOR APPETITE. LBM: 03/08. SKIN INTACT, NO EDEMA NOTED. PT PREVIOUSLY INTUBATED IN ICU HOWEVER, NOW EXTUBATED AND MOVED TO THIRD FLOOR. PT SLEEPING A LOT AND HAS POOR APPETITE. PENDING GI RECOMMENDATIONS FOR POSSIBLE GI BLEED. RD RECOMMENDS CONTINUE CURRENT DIET OFFER ENSURE CLEAR TID; ASSISTED FEEDINGS WITH MEALS RECOMMEND AN APPETITE STIMULANT MONITOR BM AND PO INTAKE RD WILL CONTINUE TO MONITOR PO INTAKE, WEIGHT AND APPETITE Addendum: 03/09/19 at [address] Amended: Links added.
--- NOTE | 2019-03-09 15:00 | NUR ---
ORDER RECD,REFERRAL TO RETAMA CRISTOPHER/CHOICE FOR RETAMA, REFERRAL SENT
[2019-03-09 16:00] VITALS: BP_SYST 112; BP_SYST 126; BP_DIAS 47; BP_DIAS 90
[2019-03-09] MEDS: ARTIFICAL TEARS SOL 15 ML OU SCH (16:00)
[2019-03-09] MEDS: ENOXAPARIN SODIUM 40 MG/0.4 ML SYRINGE SQ SCH (17:45)
[2019-03-09 20:06] VITALS: BP 138/69
[2019-03-09] MEDS: ATORVASTATIN CALCIUM 40 MG TABLET PO SCH (22:04)
[2019-03-10 04:06] VITALS: BP 131/82
[2019-03-10] MEDS: VANCOMYCIN 750MG + NS 250 ML IV SCH ×4 (05:20→18:31)
[2019-03-10] MEDS: INSULIN LISPRO 100 UNIT/ML 3ML SQ SCH ×4 (06:00→20:32)
[2019-03-10 06:09] LABS: BASOPHILS % (AUTO) 0.2 % (0.0-5.0); EOSINOPHILS % (AUTO) 0.9 % (0.0-8.0); HEMATOCRIT 29.2 % (36-48); LYMPHOCYTES % (AUTO) 17.6 % (21.0-51.0); MEAN CORPUSCULAR HEMOGLOBIN 31.6 pg (27.0-33.0); MEAN CORPUSCULAR HGB CONC 33.7 g/dL (32.0-36.0); MEAN CORPUSCULAR VOLUME 93.6 fL (79-99); MONOCYTES % (AUTO) 7.2 % (3.0-13.0); NEUTROPHILS % (AUTO) 74.1 % (40.0-77.0); NUCLEATED RED BLOOD CELLS 0.1 % (0.0-0.19); PLATELET COUNT (AUTO) 458 K/uL (130-400); RED BLOOD CELL COUNT(AUTO) 3.12 MIL/uL (4.00-5.50); RED CELL DISTRIBUTION WIDTH 14.8 % (11.0-15.5); WHITE BLOOD COUNT (AUTO) 11.5 K/uL (4.8-10.8)
[2019-03-10 06:30] LABS: B-TYPE NATRIURETIC PEPTIDE 72 pg/mL (0-100); MAGNESIUM 1.5 mg/dL (1.80-2.40); POTASSIUM 3.8 mmol/L (3.5-5.1)
[2019-03-10] MEDS: INSULIN GLARGINE 100 UNITS/ML 10 ML VIAL SQ SCH ×2 (06:31→20:34)
[2019-03-10 08:00] VITALS: BP 146/51
[2019-03-10] MEDS: METHYLPREDNISOLONE 4 MG TABLET PO SCH ×2 (08:00→17:00)
[2019-03-10] MEDS: METOPROLOL SUCCINATE 25 MG PO SCH ×2 (09:00→19:41)
[2019-03-10] MEDS ORDERED: ASPIRIN 325 MG TABLET PO SCH (09:00)
[2019-03-10] MEDS: IPRATROPIUM/ALBUTEROL SULFATE 3 ML SOLUTION IH SCH ×4 (09:52→21:37)
[2019-03-10] MEDS: LOSARTAN 50 MG TABLET PO SCH (09:53)
[2019-03-10] MEDS: CARVEDILOL 3.125 MG TABLET PO SCH ×2 (09:54→19:39)
[2019-03-10] MEDS: CLOPIDOGREL BISULFATE 75 MG TAB PO SCH (09:54)
[2019-03-10] MEDS: LEVETIRACETAM 250 MG in SODIUM CHLORIDE 0.9% 100 ML IV SCH ×2 (10:33→21:40)
--- NOTE | 2019-03-10 11:10 | NUR ---
P.T. HERE ,AND GOT PT . UP AND AMBULATED OUT OF THE ROOM TO HALLWAY. TOLERATE FAIR. CALL LIGHT . IN REACH.
[2019-03-10 11:47] VITALS: BP 136/91
--- NOTE | 2019-03-10 13:30 | NUR ---
DYSPHAGIA RE-EVAL COMPLETED. -S/S OF ASPIRATION. RECOMMEND REGULAR TEXTURE, THIN LIQUIDS; PILLS WHOLE WITH LIQUIDS. Addendum: 03/10/19 at 1331 by ANAHY GO, [facility] Amended: Links added.
--- NOTE | 2019-03-10 16:00 | NUR ---
WAITING FOR AUTH FOR RETAMA
[2019-03-10 16:23] VITALS: BP 153/80
--- NOTE | 2019-03-10 16:30 | NUR ---
JORY BERMUDEZ FOR RETAMA - BUT PT IS NOT YET READY NEEDS TO HAVE DIET ADVANCED DISCUSSED WITH NITIN WHO WILL TALK TO DR. PILY KHANNA DC TOMORROW OR FRIDAY
[2019-03-10] MEDS: ARTIFICAL TEARS SOL 15 ML OU SCH (18:12)
[2019-03-10] MEDS: ENOXAPARIN SODIUM 40 MG/0.4 ML SYRINGE SQ SCH (18:30)
[2019-03-10] MEDS: ATORVASTATIN CALCIUM 40 MG TABLET PO SCH (19:38)
[2019-03-10 20:00] VITALS: BP 165/85
[2019-03-11] VITALS: BP 138/81
[2019-03-11] MEDS: IPRATROPIUM/ALBUTEROL SULFATE 3 ML SOLUTION IH SCH ×5 (01:24→18:43)
[2019-03-11 04:00] VITALS: BP_SYST 77
[2019-03-11] MEDS: VANCOMYCIN 750MG + NS 250 ML IV SCH ×2 (05:05)
[2019-03-11] MEDS: INSULIN GLARGINE 100 UNITS/ML 10 ML VIAL SQ SCH (05:43)
[2019-03-11] MEDS: INSULIN LISPRO 100 UNIT/ML 3ML SQ SCH ×3 (05:43→16:04)
[2019-03-11 05:46] LABS: BASOPHILS % (AUTO) 0.6 % (0.0-5.0); EOSINOPHILS % (AUTO) 1.2 % (0.0-8.0); HEMATOCRIT 28.2 % (36-48); LYMPHOCYTES % (AUTO) 18.8 % (21.0-51.0); MEAN CORPUSCULAR HEMOGLOBIN 31.5 pg (27.0-33.0); MEAN CORPUSCULAR HGB CONC 33.5 g/dL (32.0-36.0); MEAN CORPUSCULAR VOLUME 93.8 fL (79-99); MONOCYTES % (AUTO) 8.2 % (3.0-13.0); NEUTROPHILS % (AUTO) 71.2 % (40.0-77.0); PLATELET COUNT (AUTO) 473 K/uL (130-400); RED CELL DISTRIBUTION WIDTH 15.2 % (11.0-15.5); WHITE BLOOD COUNT (AUTO) 8.6 K/uL (4.8-10.8)
[2019-03-11 05:57] LABS: CREATININE 0.9 mg/dL (0.5-1.5); MAGNESIUM 1.4 mg/dL (1.80-2.40); POTASSIUM 3.5 mmol/L (3.5-5.1)
[2019-03-11 08:00] VITALS: BP 140/74
[2019-03-11] MEDS: METOPROLOL SUCCINATE 25 MG PO SCH (09:00)
[2019-03-11] MEDS ORDERED: METHYLPREDNISOLONE 4 MG TABLET PO SCH (09:00)
--- NOTE | 2019-03-11 10:00 | NUR ---
JONES CATHETER DC PROCEDURE EXPLAIN TO PT. . DC. WITH . VOIDING PENDING
--- NOTE | 2019-03-11 10:50 | NUR ---
VOID 400 CC OF YELLOW URINE , AFTER DC THE JONES CATHETER . TOLERATE WELL.
--- NOTE | 2019-03-11 11:11 | NUR ---
SWALLOW TREATMENT COMPLETED. Pt SITTING AT 90 DEGREES IN BED AT THIS TIME. Pt COOPERATIVE DURING VISIT. Pt REPORTS THAT SHE DOES NOT LIKE FOOD FROM THE HOSPITAL, BUT HAS BEEN EATING FOOD THAT HER FAMILY BRINGS. NURSE CONFIRMS COMMENT. Pt PARTICIPATED IN THERAPEUTIC TRIALS OF THIN LIQUIDS VIA STRAW SIP WITH NO OVERT S/S OF ASPIRATION. RECOMMEND CONTINUED REGULAR TEXTURE, THIN LIQUIDS AT THIS TIME. SKILLED SPEECH THERAPY IS NOT WARRANTED AT THIS TIME. Pt HAS MET LEAST RESTRICTIVE DIET. Addendum: 03/11/19 at 1114 by ANAHY GO, [facility] ST Amended: Links added.
[2019-03-11] MEDS: CARVEDILOL 3.125 MG TABLET PO SCH (11:29)
[2019-03-11] MEDS: CLOPIDOGREL BISULFATE 75 MG TAB PO SCH (11:31)
[2019-03-11] MEDS: LOSARTAN 50 MG TABLET PO SCH (11:31)
[2019-03-11] MEDS: LEVETIRACETAM 250 MG in SODIUM CHLORIDE 0.9% 100 ML IV SCH (11:32)
[2019-03-11 12:00] VITALS: BP 153/80
[2019-03-11 16:00] VITALS: BP 141/80
[2019-03-11] MEDS: ARTIFICAL TEARS SOL 15 ML OU SCH (16:00)
--- NOTE | 2019-03-11 16:00 | NUR ---
REPORT GIVEN TO NURSE JOSE MOJICA LVN AT [facility] . IN [place]
--- NOTE | 2019-03-11 17:00 | NUR ---
PICC LINE TO HER RT UPPER ARM. PROCEDURE EXPLAIN TO PT. . PICC LINE SITE. NOTED NO REDNESS TO SITE, PICC LINE DC SLOWLY AND STEADY, WITH NO HEMATOMA NOTED OR REDNESS TO SITE,, SM PRESSURE DRSG APPLICATION ON .. . .. CMS PRESENT TO HER ARM.S AND STRONG RADIAL PULSE NOTED TOLERATE WELL.
[2019-03-11] MEDS: ENOXAPARIN SODIUM 40 MG/0.4 ML SYRINGE SQ SCH (17:15)
--- NOTE | 2019-03-11 17:20 | NUR ---
[facility] CALLED FOR TRANSFER TO [facility] .AND NEEDED CARRY OUT CLERK . NEEDED FOR TRANSFER
[2019-03-12] MEDS ORDERED: ASPIRIN 81MG TAB.CHEW PO SCH (09:00)
== END 2019-03-11 20:00 | DRG 870 ==
LOC: EDBD 13:25 → EDH 13:25 → EDHIP 13:26 → 2CH 15:51 → 3CH 03-07 16:35 → 3BH 03-08 07:39
PROVIDERS: ADMIT Internal Medicine; ATTEND Internal Medicine
PROC: 5A1955Z Respiratory Ventilation, Greater than 96 Consecutive Hours (ICD-10-PCS; principal; 2019-02-25)
PROC: 0BH17EZ Insertion of Endotracheal Airway into Trachea, Via Natural or Artificial Opening (ICD-10-PCS; 2019-02-25)
PROC: 05HB33Z Insertion of Infusion Device into Right Basilic Vein, Percutaneous Approach (ICD-10-PCS; 2019-02-26)
PROC: 05HB33Z Insertion of Infusion Device into Right Basilic Vein, Percutaneous Approach (ICD-10-PCS; 2019-02-26)
PROC: 4B02XTZ Measurement of Cardiac Defibrillator, External Approach (ICD-10-PCS; 2019-02-27)
PROC: 5A09357 Assistance with Respiratory Ventilation, Less than 24 Consecutive Hours, Continuous Positive Airway Pressure (ICD-10-PCS; 2019-03-04)
PROC: 30233N1 Transfusion of Nonautologous Red Blood Cells into Peripheral Vein, Percutaneous Approach (ICD-10-PCS; 2019-03-07)
PROC: 5A09357 Assistance with Respiratory Ventilation, Less than 24 Consecutive Hours, Continuous Positive Airway Pressure (ICD-10-PCS; 2019-03-08)
PROC: 0DJ08ZZ Inspection of Upper Intestinal Tract, Via Natural or Artificial Opening Endoscopic (ICD-10-PCS; 2019-03-08)
DX: A41.51 Sepsis due to Escherichia coli [E. coli] (principal); J96.00 Acute respiratory failure, unspecified whether with hypoxia or hypercapnia; R57.0 Cardiogenic shock; K72.00 Acute and subacute hepatic failure without coma; N18.6 End stage renal disease; R65.21 Severe sepsis with septic shock; G92 Toxic encephalopathy; I50.23 Acute on chronic systolic (congestive) heart failure; J18.9 Pneumonia, unspecified organism; K26.4 Chronic or unspecified duodenal ulcer with hemorrhage; N17.9 Acute kidney failure, unspecified; I42.0 Dilated cardiomyopathy; M62.82 Rhabdomyolysis; I42.9 Cardiomyopathy, unspecified; N39.0 Urinary tract infection, site not specified; I13.2 Hypertensive heart and chronic kidney disease with heart failure and with stage 5 chronic kidney disease, or end stage renal disease; J44.0 Chronic obstructive pulmonary disease with (acute) lower respiratory infection; E87.6 Hypokalemia; B85.2 Pediculosis, unspecified; K21.0 Gastro-esophageal reflux disease with esophagitis; B37.9 Candidiasis, unspecified; E66.9 Obesity, unspecified; K31.89 Other diseases of stomach and duodenum; D50.9 Iron deficiency anemia, unspecified; E78.5 Hyperlipidemia, unspecified; E86.0 Dehydration; F17.200 Nicotine dependence, unspecified, uncomplicated; G30.9 Alzheimer's disease, unspecified; I35.0 Nonrheumatic aortic (valve) stenosis; J38.4 Edema of larynx; K82.8 Other specified diseases of gallbladder; R19.00 Intra-abdominal and pelvic swelling, mass and lump, unspecified site; E87.8 Other disorders of electrolyte and fluid balance, not elsewhere classified; G47.33 Obstructive sleep apnea (adult) (pediatric); E11.22 Type 2 diabetes mellitus with diabetic chronic kidney disease; G40.909 Epilepsy, unspecified, not intractable, without status epilepticus; I25.10 Atherosclerotic heart disease of native coronary artery without angina pectoris; D64.9 Anemia, unspecified; W01.0XXA Fall on same level from slipping, tripping and stumbling without subsequent striking against object, initial encounter; F02.80 Dementia in other diseases classified elsewhere, unspecified severity, without behavioral disturbance, psychotic disturbance, mood disturbance, and anxiety; Z91.19 Patient's noncompliance with other medical treatment and regimen; Z91.14 Patient's other noncompliance with medication regimen; Y92.009 Unspecified place in unspecified non-institutional (private) residence as the place of occurrence of the external cause; Z95.810 Presence of automatic (implantable) cardiac defibrillator; Y93.89 Activity, other specified; Y99.8 Other external cause status; Z68.35 Body mass index [BMI] 35.0-35.9, adult; I25.2 Old myocardial infarction; Z86.73 Personal history of transient ischemic attack (TIA), and cerebral infarction without residual deficits
CPT/HCPCS: 31500; 36415; 36600; 43235; 70450; 70490; 71045; 74176; 76705; 76770; 80048; 80053; 80076; 80202; 81001; 82040; 82140; 82270; 82542; 82550; 82570; 82803; 82948; 83036; 83605; 83735; 83874; 83880; 84100; 84145; 84156; 84300; 84484; 84550; 85025; 85027; 85610; 85730; 86334; 86850; 86900; 86901; 86922; 87040; 87077; 87088; 87186; 92522; 92526; 92610; 93005; 93306; 94002; 94003; 94640; 94664; 97039; 99291; 99292; A4606; C1751; C1894; C9113; G0378; J0330; J0360; J1100; J1200; J1630; J1650; J1815; J1940; J1953; J2543; J2704; J2997; J3370; J3475; J3490; J7030; J7070; J7120; J7509; P9016

== ENCOUNTER → 2020-06-26 | Outpatient (CLI) | payer OTHER ==
[~2020-06-26] MED LIST: ATOR40TA71 PO; CARV3.1262 PO; CLOP75TA32 PO; FURO20TA6 PO; INSLAN SQ; LEVE250T PO; LEVO500T2 PO; LOSA25TA41 PO; PANT40TA55 PO
== END | disposition home or self-care (01) ==
LOC: SHCH 13:25
PROVIDERS: ATTEND Internal Medicine Cardiovascular Disease
DX: R01.1 Cardiac murmur, unspecified (principal)
CPT/HCPCS: 93306; 93356

== ENCOUNTER → 2020-09-12 | Outpatient (CLI) | payer OTHER | END | disposition home or self-care (01) | LOC: SHCH 08:46 | PROVIDERS: ATTEND Internal Medicine Cardiovascular Disease | DX: I65.23 Occlusion and stenosis of bilateral carotid arteries (principal); R09.89 Other specified symptoms and signs involving the circulatory and respiratory systems; I71.4 Abdominal aortic aneurysm, without rupture | CPT/HCPCS: 93880; 93978 ==

== ENCOUNTER → 2020-11-01 | Outpatient (CLI) | payer OTHER | END | disposition home or self-care (01) | LOC: RAH 10:33 | PROVIDERS: ATTEND Nurse Practitioner Family | DX: S22.088A Other fracture of T11-T12 vertebra, initial encounter for closed fracture (principal); S22.41XA Multiple fractures of ribs, right side, initial encounter for closed fracture; I51.7 Cardiomegaly; W19.XXXA Unspecified fall, initial encounter; Y93.89 Activity, other specified; Y92.89 Other specified places as the place of occurrence of the external cause; Y99.8 Other external cause status | CPT/HCPCS: 71046; 71100 ==

== ENCOUNTER → 2020-11-13 | Outpatient (CLI) | payer OTHER | END | disposition home or self-care (01) | LOC: RAH 11:58 | PROVIDERS: ATTEND Internal Medicine | DX: S22.080A Wedge compression fracture of T11-T12 vertebra, initial encounter for closed fracture (principal); X58.XXXA Exposure to other specified factors, initial encounter; Y93.89 Activity, other specified; Y92.89 Other specified places as the place of occurrence of the external cause; Y99.8 Other external cause status | CPT/HCPCS: 72070 ==

== ENCOUNTER 2021-07-25 10:26 | Emergency (ER) | payer OTHER ==
[~2021-07-25] VITALS: Ht 167.6 cm; Wt 81.6 kg
[~2021-07-25 10:26] MED LIST changes: +BUSP10TA3 PO; -CLOP75TA32 PO; +FLUO20CA36 PO; +GABA300C PO; -LEVE250T PO; +LEVE500T19 PO; -LEVO500T2 PO; +LOSA100T58 PO; -LOSA25TA41 PO; +OXCA300T28 PO; +PANT40TA54 PO; -PANT40TA55 PO; +SULF1TAB42 PO; +TYL3B PO
[2021-07-25 11:37] LABS: BASOPHILS % (AUTO) 0.3 % (0.0-5.0); EOSINOPHILS % (AUTO) 0.5 % (0.0-8.0); HEMATOCRIT 45.8 % (36-48); LYMPHOCYTES % (AUTO) 24.8 % (21.0-51.0); MEAN CORPUSCULAR HEMOGLOBIN 30.6 pg (27.0-33.0); MEAN CORPUSCULAR HGB CONC 31.2 g/dL (32.0-36.0); MEAN CORPUSCULAR VOLUME 98.1 fL (79-99); MONOCYTES % (AUTO) 6.9 % (3.0-13.0); NEUTROPHILS % (AUTO) 67.2 % (40.0-77.0); PLATELET COUNT (AUTO) 245 K/uL (130-400); RED BLOOD CELL COUNT(AUTO) 4.67 MIL/uL (4.00-5.50); RED CELL DISTRIBUTION WIDTH 13.1 % (11.0-15.5); WHITE BLOOD COUNT (AUTO) 9.2 K/uL (4.8-10.8)
[2021-07-25 11:56] LABS: CREATININE 1.4 mg/dL (0.5-1.5); POTASSIUM 4.8 mmol/L (3.5-5.1)
[2021-07-25 12:01] LABS: ALBUMIN 3.3 g/dL (3.5-5.0); BILIRUBIN,TOTAL 0.3 mg/dL (0.2-1.0); TOTAL PROTEIN, SERUM 7.1 g/dL (6.0-8.3)
[2021-07-25 14:47] VITALS: BP 154/61
== END 2021-07-25 14:52 | disposition home or self-care (01) ==
LOC: EDH 10:26
DX: S02.2XXA Fracture of nasal bones, initial encounter for closed fracture (principal); S00.83XA Contusion of other part of head, initial encounter; J44.9 Chronic obstructive pulmonary disease, unspecified; I10 Essential (primary) hypertension; Z79.899 Other long term (current) drug therapy; W18.39XA Other fall on same level, initial encounter; Y93.01 Activity, walking, marching and hiking; Y92.89 Other specified places as the place of occurrence of the external cause; Y99.8 Other external cause status
CPT/HCPCS: 36415; 70450; 70486; 72125; 80053; 84484; 85025; 93005

== ENCOUNTER 2022-11-13 11:11 | Emergency (ER) | payer OTHER ==
[~2022-11-13] VITALS: Ht 162.6 cm; Wt 81.6 kg
[~2022-11-13 11:11] MED LIST changes: +CALC-1220 PO; -LOSA100T58 PO; +LOSA100T59 PO; -SULF1TAB42 PO; -TYL3B PO
[2022-11-13] MEDS ORDERED: HYDROXYZINE 25 MG TABLET PO ONE (16:00)
[2022-11-13 18:50] VITALS: BP 140/65; PULSE 62; RESP 16
== END 2022-11-13 19:00 | disposition home or self-care (01) ==
LOC: EDH 11:11
DX: I10 Essential (primary) hypertension (principal); J44.9 Chronic obstructive pulmonary disease, unspecified; Z79.899 Other long term (current) drug therapy; Z95.810 Presence of automatic (implantable) cardiac defibrillator

== ENCOUNTER 2023-04-09 12:02 | Emergency (ER) | payer OTHER ==
[~2023-04-09] VITALS: Ht 162.6 cm; Wt 81.6 kg
[2023-04-09] MEDS ORDERED: LABETALOL 20MG VIAL IV ONE (13:30)
[2023-04-09 13:42] LABS: BASOPHILS # (AUTO) 0.04 K/uL (0.00-0.20); BASOPHILS % (AUTO) 0.4 % (0.0-5.0); EOSINOPHILS # (AUTO) 0.05 K/uL (0.00-0.70); EOSINOPHILS % (AUTO) 0.5 % (0.0-8.0); HEMATOCRIT 42.4 % (36-48); IMMATURE GRANULOCYTE ABSOLUTE 0.08 K/uL (0-1); LYMPHOCYTES # (AUTO) 2.1 K/uL (1.0-4.8); LYMPHOCYTES % (AUTO) 20.4 % (21.0-51.0); MEAN CORPUSCULAR VOLUME 90.8 fL (79-99); MONOCYTES # (AUTO) 0.7 K/uL (0.1-1.0); MONOCYTES % (AUTO) 7.1 % (3.0-13.0); NEUTROPHILS # (AUTO) 7.4 K/uL (1.8-7.7); NEUTROPHILS % (AUTO) 70.8 % (40.0-77.0); PLATELET COUNT (AUTO) 301 K/uL (130-400); RED BLOOD CELL COUNT(AUTO) 4.67 MIL/uL (4.00-5.50); RED CELL DISTRIBUTION WIDTH 13.6 % (11.0-15.5); WHITE BLOOD COUNT (AUTO) 10.5 K/uL (4.8-10.8)
[2023-04-09 13:56] LABS: ALBUMIN 3.8 g/dL (3.5-5.0); BILIRUBIN,TOTAL 0.7 mg/dL (0.2-1.0); CREATININE 1.3 mg/dL (0.5-1.5); POTASSIUM 4.3 mmol/L (3.5-5.1); TOTAL PROTEIN, SERUM 7.9 g/dL (6.0-8.3)
[2023-04-09 15:06] VITALS: PULSE 66
[2023-04-09 17:10] VITALS: BP 161/85; PULSE 60; RESP 16; O2SAT 94
== END 2023-04-09 17:38 | disposition home or self-care (01) ==
LOC: EDH 12:02
DX: M54.50 Low back pain, unspecified (principal); E11.9 Type 2 diabetes mellitus without complications; E78.00 Pure hypercholesterolemia, unspecified; K21.9 Gastro-esophageal reflux disease without esophagitis; Z79.899 Other long term (current) drug therapy; Z95.810 Presence of automatic (implantable) cardiac defibrillator; Z20.822 Contact with and (suspected) exposure to COVID-19
CPT/HCPCS: 99285; 96374; 70450; 80053; 85025; 36415; 73522; 72100; 72070; J3490

== ENCOUNTER → 2023-07-03 | Outpatient (CLI) | payer OTHER ==
[~2023-07-03] MED LIST changes: +CARV-158 PO; -CARV3.1262 PO
== END | disposition home or self-care (01) ==
LOC: SHCH 08:20
PROVIDERS: ATTEND Internal Medicine Cardiovascular Disease
DX: I35.0 Nonrheumatic aortic (valve) stenosis (principal); I11.9 Hypertensive heart disease without heart failure; E11.9 Type 2 diabetes mellitus without complications; E78.5 Hyperlipidemia, unspecified; Z95.0 Presence of cardiac pacemaker
CPT/HCPCS: 93306

== ENCOUNTER → 2024-06-07 | Outpatient (CLI) | payer OTHER ==
[~2024-06-07] MED LIST changes: -CARV-158 PO; +CARV3.1262 PO; +FLUO-418 PO; -FLUO20CA36 PO
--- NOTE | 2024-06-08 08:02 | HMCSR ---
APPROVED REPORT EXAM: Two-dimensional and M-mode echocardiogram with Doppler and color Doppler. INDICATION ICD: R06.00 Dyspnea 2D Dimensions RVDd3.1 cmLVEF(%)44.6 (>50%)LVED Vol(simp.)108.0 mL IVSd1.4 (0.7-1.1cm)FS(%)22 %LVES Vol(simp.)71.0 mL LVDd4.9 (3.8-5.6cm)LVOT diam2.1 (1.8-2.4cm)LVEF(%, simp.)34 % PWd1.2 (0.7-1.1cm)IVC diam1.0 cmLA ESV INDEX (BP)32.50 mL/m2 LVDs3.8 (2.5-4.0cm) Aortic Valve AoV Vmax2.2 m/[place] Peak GR19.5 mmHgLVOT Vmax0.8 m/s AoV VTI0.4 mAo Mean GR10.9 mmHgLVOT VTI0.19 m ANITHA (VMAX)1.6 cm2AVA (VTI) 1.6 cm2 Mitral Valve MV E Vmax82.2 cm/sDECEL Qxdw452 ms MV A Olpr065.3 cm/sP 1/2 T106 ms E/A ratio0.7MVA (PHT)2.1 cm2 MR Max PG80 mmHg TDI E/E' Icxhsc61.6E/E' Xjkhtqt58.1 Pulmonary Valve PV Vmax1.0 m/sPV VTI0.22 mPV Mean GR3 mmHg PV Peak GR4.3 mmHg Tricuspid Valve TR Vmax2.5 m/sRAP (EST) 3 xkFyPQKU00.7 mmHg TR Peak GR25.7 mmHg Left Ventricle Left ventricular cavity size is normal. Dyssynchronous wall motion. There is mild to moderate concent abilio left ventricular hypertrophy. LVEF is 35%. No left ventricle thrombus noted on this study. Grade 1 diastolic dysfunction Right Ventricle The right ventricle is normal size. The right ventricular systolic function is normal. Atria The left atrium size is normal. The right atrium size is normal. Aortic Valve Aortic valve is trileaflet. Aortic valve is moderately calcified. Trace aortic regurgitation. Calcula milind aortic valve area is 1.6 cm2 with maximum pressure gradient of 19.5 mmHg and mean pressure gradie nt of 11 mmHg. Mitral Valve Mitral valve leaflets are mildly sclerotic but open well. Mitral regurgitation is trace. There is no mitral valve stenosis. Tricuspid Valve The tricuspid valve leaflets appear normal. There is trace to mild tricuspid regurgitation. Pulmonic Valve Pulmonic valve is not well visualized. Great Vessels The aortic root is not well visualized but is probably normal size. The IVC is normal in size and col lapses >50% with inspiration. Pericardium No pericardial effusion. Other Information Quality : Technically Limited Technically limited study due to body habitus. Conclusion Left ventricular cavity size is normal. There is mild to moderate concentric left ventricular hypertrophy. LVEF is 35%. Grade 1 diastolic dysfunction Dyssynchronous wall motion. The right ventricle is normal size. The left atrium size is normal. Aortic valve is trileaflet. Aortic valve is moderately calcified. Trace aortic regurgitation. Calculated aortic valve area is 1.6 cm2 with maximum pressure gradient of 19.5 mmHg and mean pressure gradient of 11 mmHg. Mitral valve leaflets are mildly sclerotic but open well. Mitral regurgitation is trace. There is no mitral valve stenosis. There is trace to mild tricuspid regurgitation. The aortic root is not well visualized but is probably normal size. No pericardial effusion.
== END | disposition home or self-care (01) ==
LOC: SHCH 10:07
PROVIDERS: ATTEND Internal Medicine Cardiovascular Disease
DX: I08.3 Combined rheumatic disorders of mitral, aortic and tricuspid valves (principal); I70.0 Atherosclerosis of aorta; R06.00 Dyspnea, unspecified
CPT/HCPCS: 93306